=== PATIENT | male | born 1970 | race Caucasian/White ===

== ENCOUNTER 2022-03-13 15:04 | Emergency (ER) | payer MEDICAID ==
[~2022-03-13] VITALS: Ht 165.1 cm; Wt 70.0 kg
[2022-03-13 16:05] LABS: BASOPHILS % 0.9 % (0.0-2.0); EOSINOPHILS % 1.9 % (0.0-5.0); HEMATOCRIT. 40.8 % (42.0-52.0); HEMOGLOBIN. 14.3 g/dL (14.0-18.0); LYMPHOCYTES % 34.4 % (20.0-50.0); MEAN PLATELET VOLUME 8.5 fl (7.4-10.4); MONOCYTES % 9.5 % (2.0-8.0); NEUTROPHILS % 53.3 % (40.0-76.0); PLATELET 159 x1000/uL (130-400); RED BLOOD CELL COUNT 4.34 mill/uL (4.7-6.1); RED CELL DISTRIBUTION WIDTH 12.8 % (11.6-14.6)
[2022-03-13 16:08] LABS: CHLORIDE 107 mEq/L (98-107)
[2022-03-13 16:17] LABS: ETHANOL BLOOD < 10 mg/dL
[2022-03-13 16:47] LABS: CLARITY URINE CLEAR (CLEAR); COLOR URINE YELLOW (YELLOW); KETONES URINE NEGATIVE (NEGATIVE); LEUKOCYTE ESTERASE URINE NEGATIVE (NEGATIVE); NITRITE URINE NEGATIVE (NEGATIVE); OCCULT BLOOD URINE NEGATIVE (NEGATIVE); PROTEIN URINE NEGATIVE (NEGATIVE); SPECIFIC GRAVITY URINE 1.014 (1.005-1.030); UROBILINOGEN URINE 0.2 E.U./dL (0.2-1.0)
[2022-03-13 17:08] LABS: *AMPHETAMINES SCREEN URINE NEGATIVE (NEGATIVE); *BARBITURATES SCREEN URINE NEGATIVE (NEGATIVE); *BENZODIAZEPINES SCREEN URINE NEGATIVE (NEGATIVE); *COCAINE SCREEN URINE NEGATIVE (NEGATIVE); CANNABINOID URINE SCREEN NEGATIVE (NEGATIVE); METHADONE URINE SCREEN NEGATIVE (NEGATIVE); OPIATES URINE SCREEN NEGATIVE (NEGATIVE); PHENCYCLIDINE URINE SCREEN NEGATIVE (NEGATIVE)
[2022-03-13] MEDS ORDERED: OMEP40CA20 MT (17:52)
[2022-03-13 18:00] VITALS: BP 129/82
== END 2022-03-13 18:01 | disposition home or self-care (01) ==
LOC: ER 15:04
DX: R10.13 Epigastric pain (principal)
CPT/HCPCS: 36415; 71045; 80053; 80305; 80320; 81003; 85025; 99284; G0480

== ENCOUNTER 2022-12-20 12:33 | Emergency (ER) | payer MEDICAID ==
[~2022-12-20] VITALS: Ht 165.1 cm; Wt 65.0 kg
[~2022-12-20 12:33] MED LIST: OMEP40CA20 MT
[2022-12-20] MEDS ORDERED: MAGNESIUM/ALUMINUM HYDROXIDE/SIMETHICONE 30ML UDC PO STA (15:39)
[2022-12-20] MEDS ORDERED: VISCOUS LIDOCAINE 2% 15 ML UDC PO STA (15:39)
[2022-12-20] MEDS ORDERED: SODIUM CHLORIDE 0.9% 1,000 ML IV ONE (15:45)
[2022-12-20] MEDS ORDERED: FAMOTIDINE 20MG/2ML VIAL IV ONE (15:45)
[2022-12-20 15:51] LABS: BASOPHILS % 0.5 % (0.0-2.0); EOSINOPHILS % 1.2 % (0.0-5.0); HEMATOCRIT. 43.2 % (42.0-52.0); HEMOGLOBIN. 15.4 g/dL (14.0-18.0); LYMPHOCYTES % 27.9 % (20.0-50.0); MEAN CORPUSCULAR HEMOGLOBIN 33.6 pg (28.0-32.0); MEAN CORPUSCULAR VOLUME 94.4 fL (80.0-94.0); MEAN PLATELET VOLUME 8.4 fl (7.4-10.4); MONOCYTES % 9.2 % (2.0-8.0); NEUTROPHILS % 61.2 % (40.0-76.0); PLATELET 194 x1000/uL (130-400); RED BLOOD CELL COUNT 4.57 mill/uL (4.7-6.1); RED CELL DISTRIBUTION WIDTH 12.9 % (11.6-14.6)
[2022-12-20 16:01] LABS: CHLORIDE 104 mEq/L (98-107)
[2022-12-20 18:55] VITALS: BP 122/70
[2022-12-20] MEDS ORDERED: FAMO-135 MT (18:55)
== END 2022-12-20 19:07 | disposition home or self-care (01) ==
LOC: ER 12:33
DX: R10.13 Epigastric pain (principal); E03.9 Hypothyroidism, unspecified
CPT/HCPCS: 36415; 74176; 80053; 83690; 85025; 96361; 96374; 99285; J3490; J7030; Z7610